=== PATIENT | female | born 1955 | race Two or more races ===

== ENCOUNTER 2017-04-27 19:22 | Emergency (ER) | payer OTHER ==
[~2017-04-27] VITALS: Ht 165.1 cm; Wt 99.8 kg
[2017-04-27] MEDS ORDERED: ONDANSETRON HCL 4 MG/2 ML VIAL IV ONE (19:30)
[2017-04-27] MEDS ORDERED: HYDROmorphone HCL 2 MG/ML VL IV ONE (19:30)
[2017-04-27 22:07] VITALS: BP 164/99
== END 2017-04-28 | disposition home or self-care (01) ==
LOC: EDBD 19:22 → ER 19:28
DX: S82.431A Displaced oblique fracture of shaft of right fibula, initial encounter for closed fracture (principal); S82.891A Other fracture of right lower leg, initial encounter for closed fracture; W19.XXXA Unspecified fall, initial encounter; Y93.89 Activity, other specified; Y99.8 Other external cause status; Y92.89 Other specified places as the place of occurrence of the external cause
CPT/HCPCS: 29515; 73610; 96374; 96375; 99284; J1170; J2405

== ENCOUNTER 2022-04-25 14:10 | Inpatient (IN) | payer OTHER ==
[~2022-04-25] VITALS: Ht 154.9 cm; Wt 99.8 kg
[2022-04-25 14:58] LABS: Basophils # (auto) 0 10 ^3/uL (0-0.2); Basophils % (auto) 0.5 % (0.0-2.0); Eosinophils # (auto) 0.1 10 ^3/uL (0-0.8); Hematocrit 40.6 % (36.0-46.0); Hemoglobin 13.9 g/dL (12.2-16.2); Lymphocytes # (auto) 2.1 10 ^3/uL (0.4-5.4); Mean Corpuscular Hemoglobin 31.6 pg (28.0-32.0); Mean Corpuscular Hgb Conc. 34.3 g/dL (32.0-36.0); Mean Corpuscular Volume 92.1 fL (80.0-100.0); Monocytes # (auto) 0.8 10 ^3/uL (0-1.3); Neutrophils % (auto) 50.5 % (37.0-80.0); Nucleated Red Blood Cells % 0.2 %; Red Blood Cells 4.41 10^6/uL (4.0-5.20); Red Cell Distribution Width 12.8 % (11.8-14.3); White Blood Cell 5.9 10^3/uL (4.4-10.8)
[2022-04-25 15:27] LABS: BUN/Creatinine Ratio 29.4; Calcium 9.5 mg/dL (8.5-10.1); Potassium 3.5 mmol/L (3.5-5.1)
[2022-04-25 15:30] LABS: Bilirubin, Total 0.6 mg/dL (0.2-1.0); Total Protein 7.8 g/dL (6.4-8.2)
[2022-04-25] MEDS ORDERED: IPRATROPIUM BROM 0.5 MG/2.5ML INH SOL NEB ONE (15:30)
[2022-04-25] MEDS ORDERED: ALBUTEROL SULF 2.5 MG/0.5ML(0.5%) NEB SOLN NEB ONE (15:30)
[2022-04-25] MEDS ORDERED: methylPREDNISolone SOD SUCC 125 MG/2 ML VL IV ONE (15:30)
[2022-04-25] MEDS ORDERED: SODIUM CHLORIDE 0.9% 1,000 ML IVB ONE (15:45)
[2022-04-25] MEDS ORDERED: SODIUM CHLORIDE 0.9% 1,000 ML IV ONE (15:45)
[2022-04-25 17:27] LABS: INR 1.07 (0.9-1.15); Partial Thromboplastin Time 25.6 sec (23.6-33.0)
[2022-04-25] MEDS ORDERED: ENOXAPARIN SOD 60 MG/0.6 ML SYRINGE SC ONE (17:45)
[2022-04-25] MEDS ORDERED: PRED20TA2 PO (18:12)
[2022-04-25] MEDS ORDERED: AZIT250T PO (18:18)
[2022-04-25] MEDS ORDERED: MORPHINE SULFATE INJ 2 MG/ml SYRG IV PRN (19:15)
[2022-04-25] MEDS ORDERED: REMDESIVIR PER PHARMACY 0 ML IV SCH (19:15)
[2022-04-25] MEDS ORDERED: NITROGLYCERIN 0.4 MG SL TAB SL PRN (19:15)
[2022-04-25] MEDS ORDERED: REMDESIVIR 200 MG in NS 210ml LOADING DOSE ADULT IV ONE (20:15)
[2022-04-25] MEDS: OXYCODONE W/ ACETAMINOPHEN 5/325MG TABLET PO PRN (20:47)
[2022-04-26] MEDS ORDERED: TEMAZEPAM 15 MG CAP PO ONE
[2022-04-26 04:07] LABS: Urine Bacteria FEW /hpf (None Seen); Urine Blood Negative /uL (Negative); Urine Specific Gravity 1.009 (1.001-1.035); Urine WBC 1 /hpf (0 - 5)
[2022-04-26] MEDS: OXYCODONE W/ ACETAMINOPHEN 5/325MG TABLET PO PRN (04:20)
[2022-04-26 05:06] VITALS: BP 151/68
[2022-04-26] MEDS ORDERED: CHLO50TA PO (06:30)
[2022-04-26] MEDS ORDERED: CARV6.2551 PO (06:30)
[2022-04-26] MEDS ORDERED: OXYC325T14 PO (06:30)
[2022-04-26] MEDS ORDERED: HYDR50TA15 PO (06:30)
[2022-04-26] MEDS ORDERED: AMLO-489 PO (06:30)
[2022-04-26] MEDS ORDERED: TIZA4TAB9 PO (06:30)
[2022-04-26] MEDS ORDERED: CLON0.1T PO (06:30)
[2022-04-26] MEDS ORDERED: HYDR200T36 PO (06:30)
[2022-04-26] MEDS ORDERED: LOSA-69 PO (06:30)
[2022-04-26] MEDS ORDERED: CYCL-839 PO (06:30)
[2022-04-26] MEDS ORDERED: FOLI1TAB6 PO (06:30)
[2022-04-26 06:39] LABS: Albumin 3.8 g/dL (3.4-5.0); Calcium 9.2 mg/dL (8.5-10.1); Potassium 3.5 mmol/L (3.5-5.1)
[2022-04-26 06:42] LABS: BUN/Creatinine Ratio 32.8; Bilirubin, Total 0.6 mg/dL (0.2-1.0); Total Protein 8.2 g/dL (6.4-8.2)
[2022-04-26 08:42] VITALS: BP 183/92
[2022-04-26] MEDS ORDERED: DexAMETHasone SOD PHOS 10MG/1ML VIAL INJ IV SCH (10:00)
[2022-04-26] MEDS ORDERED: ENOXAPARIN SOD 40 MG/0.4 ML SYRINGE SC SCH (10:00)
[2022-04-26] MEDS ORDERED: REMDESIVIR 100mg 100 MG in SODIUM CHL 0.9% 230 ML IV SCH (15:00)
== END 2022-04-26 11:09 | disposition home or self-care (01) | DRG 192 ==
LOC: ER 14:10 → EDBD 14:10 → EDUNIT# 14:10 → OVERFLOW 19:08 → EAST 23:44
PROVIDERS: ADMIT Internal Medicine; ATTEND Internal Medicine
DX: J44.1 Chronic obstructive pulmonary disease with (acute) exacerbation (principal); N18.32 Chronic kidney disease, stage 3b; Z20.822 Contact with and (suspected) exposure to COVID-19; I12.9 Hypertensive chronic kidney disease with stage 1 through stage 4 chronic kidney disease, or unspecified chronic kidney disease; Z86.73 Personal history of transient ischemic attack (TIA), and cerebral infarction without residual deficits; Z90.710 Acquired absence of both cervix and uterus; Z99.81 Dependence on supplemental oxygen
CPT/HCPCS: 36415; 36600; 71045; 80053; 81001; 82805; 83735; 84443; 84484; 85025; 85379; 85610; 85730; 93005; 94640; 96361; 96374; G0378